=== PATIENT | male | born 1960 | race Caucasian/White ===

== ENCOUNTER 2017-10-12 14:17 | Emergency (ER) | payer MEDICAID, OTHER ==
[~2017-10-12] VITALS: Ht 190.5 cm; Wt 105.7 kg
[2017-10-12 15:02] VITALS: BP 116/88
[2017-10-12] MEDS ORDERED: diphenhdrAMINE HCL 25 MG CAP PO ONE (15:30)
== END 2017-10-12 15:32 | disposition home or self-care (01) ==
LOC: ER 14:17
DX: L25.9 Unspecified contact dermatitis, unspecified cause (principal)

== ENCOUNTER 2018-05-09 14:31 | Emergency (ER) | payer MEDICAID ==
[~2018-05-09] VITALS: Ht 190.5 cm; Wt 108.4 kg
[2018-05-09 15:22] LABS: Basophils # (auto) 0.1 uL; Red Cell Distribution Width 13.5 % (11.8-14.3); White Blood Cell 8.3 10^3/uL (4.4-10.8)
[2018-05-09 15:26] LABS: Basophils % (auto) 1.2 % (0.0-2.0); Eosinophils # (auto) 0.4 uL; Eosinophils % (auto) 4.7 % (0.0-7.0); Hematocrit 45.8 % (41.0-53.0); Hemoglobin 15.7 g/dL (13.5-17.5); Lymphocytes # (auto) 2.2 uL; Lymphocytes % (auto) 26.5 % (10.0-50.0); Mean Corpuscular Hemoglobin 30.9 pg (28.0-32.0); Mean Corpuscular Hgb Conc. 34.2 g/dL (32.0-36.0); Mean Corpuscular Volume 90.4 fL (80.0-100.0); Monocytes # (auto) 0.9 uL; Monocytes % (auto) 11.1 % (0.0-12.0); Neutrophils # (auto) 4.7 uL; Neutrophils % (auto) 56.5 % (37.0-80.0); Nucleated Red Blood Cells % 0.1 %; Platelet Count (auto) 289 10^3/uL (140-450); Red Blood Cells 5.06 10^6/uL (4.5-5.90)
[2018-05-09 15:42] LABS: Alanine Aminotransferase 35 U/L (16-61); Albumin 3.8 g/dL (3.4-5.0); Alkaline Phosphatase 65 U/L (45-117); Anion Gap 8 (5-15); Aspartate Aminotransferase 17 U/L (15-37); BUN/Creatinine Ratio 15.1; Bilirubin, Total 0.3 mg/dL (0.2-1.0); Blood Urea Nitrogen 19 mg/dL (7-18); Calcium 8.8 mg/dL (8.5-10.1); Carbon Dioxide 27 mmol/L (21-32); Chloride 105 mmol/L (98-107); GFR African American 75 mL/min; GFR Non-African American 62 mL/min; Glucose 82 mg/dL (74-106); Potassium 4.2 mmol/L (3.5-5.1); Sodium 140 mmol/L (136-145); Total Protein 7.4 g/dL (6.4-8.2)
[2018-05-09 16:23] VITALS: BP 140/92
== END 2018-05-09 16:26 | disposition home or self-care (01) ==
LOC: ER 14:31
DX: M25.552 Pain in left hip (principal); M79.1 Myalgia; G89.29 Other chronic pain; M54.5 Low back pain
CPT/HCPCS: 36415; 80053; 83735; 84484; 85025; 93005

== ENCOUNTER 2019-03-11 07:13 | Emergency (ER) | payer MEDICAID ==
[~2019-03-11] VITALS: Ht 193 cm; Wt 99.8 kg
[2019-03-11 07:21] VITALS: BP 120/81
== END 2019-03-11 07:49 | disposition home or self-care (01) ==
LOC: ER 07:13
DX: J20.9 Acute bronchitis, unspecified (principal)

== ENCOUNTER 2019-08-10 20:48 | Emergency (ER) | payer MEDICAID ==
[~2019-08-10] VITALS: Ht 190.5 cm; Wt 99.8 kg
[2019-08-10 22:05] VITALS: BP 124/82
== END 2019-08-10 21:26 | disposition left against medical advice (07) ==
LOC: ER 20:54
DX: J02.9 Acute pharyngitis, unspecified (principal); Z53.21 Procedure and treatment not carried out due to patient leaving prior to being seen by health care provider

== ENCOUNTER 2022-08-01 20:09 | Emergency (ER) | payer MEDICAID | END 2022-08-01 21:08 | disposition left against medical advice (07) | LOC: ER 20:09 | DX: M54.50 Low back pain, unspecified (principal); Z53.21 Procedure and treatment not carried out due to patient leaving prior to being seen by health care provider ==

== ENCOUNTER 2022-10-15 03:55 | Emergency (ER) | payer MEDICAID ==
[~2022-10-15] VITALS: Ht 190.5 cm; Wt 106.6 kg
[2022-10-15 04:33] LABS: Basophils # (auto) 0 10 ^3/uL (0-0.2); Basophils % (auto) 0.8 % (0.0-2.0); Eosinophils # (auto) 0 10 ^3/uL (0-0.8); Eosinophils % (auto) 0.6 % (0.0-7.0); Hematocrit 44.4 % (41.0-53.0); Hemoglobin 14.4 g/dL (13.5-17.5); Lymphocytes # (auto) 1.1 10 ^3/uL (0.4-5.4); Lymphocytes % (auto) 20.2 % (10.0-50.0); Mean Corpuscular Hemoglobin 28.3 pg (28.0-32.0); Mean Corpuscular Hgb Conc. 32.5 g/dL (32.0-36.0); Mean Corpuscular Volume 86.9 fL (80.0-100.0); Monocytes # (auto) 0.9 10 ^3/uL (0-1.3); Monocytes % (auto) 16.7 % (0.0-12.0); Neutrophils # (auto) 3.4 10 ^3/uL (1.6-8.6); Neutrophils % (auto) 61.7 % (37.0-80.0); Nucleated Red Blood Cells % 0.1 %; Red Blood Cells 5.11 10^6/uL (4.5-5.90); Red Cell Distribution Width 15.9 % (11.8-14.3); White Blood Cell 5.5 10^3/uL (4.4-10.8)
[2022-10-15 04:48] LABS: Albumin 3.9 g/dL (3.4-5.0); BUN/Creatinine Ratio 14.8; Calcium 8.6 mg/dL (8.5-10.1); Potassium 4.2 mmol/L (3.5-5.1)
[2022-10-15 04:52] LABS: Bilirubin, Total 0.5 mg/dL (0.2-1.0); Total Protein 6.9 g/dL (6.4-8.2)
[2022-10-15] MEDS ORDERED: DOCU100T15 PO (07:02)
[2022-10-15] MEDS ORDERED: CIPR-173 PO (07:02)
[2022-10-15 07:45] VITALS: BP 104/58
== END 2022-10-15 07:46 | disposition home or self-care (01) ==
LOC: ER 03:55
DX: K59.00 Constipation, unspecified (principal)
CPT/HCPCS: 36415; 71045; 74176; 80053; 84484; 85025; 93005

== ENCOUNTER 2022-10-21 09:43 | Emergency (ER) | payer MEDICAID ==
[~2022-10-21 09:43] MED LIST: CIPR-173 PO; DOCU100T15 PO
== END 2022-10-21 11:25 | disposition left against medical advice (07) ==
LOC: ER 09:43
DX: R63.0 Anorexia (principal); Z53.21 Procedure and treatment not carried out due to patient leaving prior to being seen by health care provider